=== PATIENT | female | born 1975 | race Two or more races ===

== ENCOUNTER 2024-12-05 18:38 | Emergency (ER) | payer MEDICAID ==
[~2024-12-05] VITALS: Ht 152.4 cm; Wt 66.5 kg
--- NOTE | 2024-12-05 19:38 | ED.PDOC ---
History of Present Illness HPI Comments 49-year-old female brought in by family complaining of bilateral upper extremity numbness, left greater than right, onset around 7:00 a.m. today. Patient also notes a dull headache, nausea, epigastric burning pain, and fatigue. Patient states that when she ambulates she feels very heavy and tired and her lower extremities. She denies any fever, diarrhea, constipation or dysuria. She denies any vision changes or focal weakness. Chief Complaint: Left Sided Weakness Time Seen by MD: 18:52 Primary Care Provider: none Allergies: Coded Allergies: NO KNOWN ALLERGIES (Unverified , 12/05/24) Mode of Arrival: Wheelchair Past Medical History PAST MEDICAL HISTORY: Denies Surgical History: Denies all surgeries SPLICER APPRENTICE History: No Pertinent SPLICER APPRENTICE History Family History Family History: Reviewed,noncontributory to illness Social History Smoker: Non-Smoker Alcohol: Denies ETOH Use Drugs: Denies Drug Use Lives In: Home All Other Systems: Reviewed and Negative (Comprehensive systems review obtained and negative except for what is stated in the HPI.) Physical Exam General Appearance: No Apparent Distress HEENT: PERRL/EOMI, Other (Face symmetric. Moist mucous membranes.) Neck: Full Range of Motion, Normal Inspection Respiratory: Lungs Clear, No Accessory Muscle Use, No Respiratory Distress, Normal Breath Sounds Cardiovascular: No Edema, No JVD, Regular Rate/Rhythm Breast Exam: Deferred Gastrointestinal: Non Tender, Soft Genitalia: Deferred Pelvic: Deferred Rectal: Deferred Extremities: Normal inspection, Normal range of motion, Non-tender, No pedal edema Neurologic: Alert (Oriented x4), kicking machine operator II-XII nml as Tested, No Motor Deficits (Ambulatory without difficulty.), Normal Affect, Normal Mood, Other Cerebellar Function: NOT DONE Reflexes: NOT DONE Skin: Dry, Normal Color, Warm Lymphatic: NOT DONE Was a procedure done? Was a procedure done?: No EKG EKG : Comments Sinus rhythm, rate 97, normal intervals, normal axis, normal QRS, inferior/lateral T-wave inversion with ST depression Differential Dx Considerations may include: CVA, TIA, electrolyte imbalance, anxiety, mass lesion, acid reflux, gastritis, pancreatitis, ACS, NM, arrhythmia, among others X-Ray, Labs, Meds, VS Vital Signs Date Time Temp Pulse Resp B/P (MAP) Pulse Ox O2 Delivery O2 Flow Rate FiO2 12/05/24 22:30 77 16 12/05/24 22:30 98.1 77 16 117/68 (84) 99 98.1 12/05/24 18:55 97.9 84 17 130/67 (88) 98 97.9 12/05/24 18:50 97 Lab Test 12/05/24 22:35 12/05/24 20:50 12/05/24 19:18 12/05/24 18:49 Range/Units Urine Color Yellow Yellow Urine Clarity Clear Clear Urine pH 6.5 5.0-9.0 Urine Specific [place] 1.035 1.001-1.035 Urine Protein 1+ H Negative Urine Ketones 4+ H Negative Urine Blood Negative Negative /uL Urine Nitrite Negative Negative Urine Bilirubin Negative Negative Urine Urobilinogen Normal Negative mg/dL Urine Leukocyte Esterase Negative Negative /uL Urine RBC 3 0 - 4 /hpf Urine Microscopic WBC 1 0-5 /HPF Urine Squamous Epithelial Cells Few <5 /hpf Urine Bacteria None seen None Seen /hpf Urine Mucus Few None Seen Urine Glucose Normal Normal mg/dL Troponin I High Sensitivity 9 7 </=34 ng/L White Blood Count 16.1 H 4.4-10.8 10^3/uL Red Blood Count 4.78 4.0-5.20 10^6/uL Hemoglobin 14.3 12.2-16.2 g/dL Hematocrit 42.3 36.0-46.0 % Mean Corpuscular Volume 88.6 80.0-100.0 fL Mean Corpuscular Hemoglobin 29.8 28.0-32.0 pg Mean Corpuscular Hemoglobin Concent 33.7 32.0-36.0 g/dL Red Cell Distribution Width 15.2 H 11.8-14.3 % Platelet Count 357 140-450 10^3/uL Mean Platelet Volume 8.9 6.9-10.8 fL Neutrophils (%) (Auto) 88.9 H 37.0-80.0 % Lymphocytes (%) (Auto) 7.0 L 10.0-50.0 % Monocytes (%) (Auto) 3.2 0.0-12.0 % Eosinophils (%) (Auto) 0.0 0.0-7.0 % Basophils (%) (Auto) 0.9 0.0-2.0 % Neutrophils # (Auto) 14.3 H 1.6-8.6 10 ^3/uL Lymphocytes # (Auto) 1.1 0.4-5.4 10 ^3/uL Monocytes # (Auto) 0.5 0-1.3 10 ^3/uL Eosinophils # (Auto) 0 0-0.8 10 ^3/uL Basophils # (Auto) 0.2 0-0.2 10 ^3/uL Nucleated Red Blood Cells 0.0 % Sodium Level 137 136-145 mmol/L Potassium Level 4.5 3.5-5.1 mmol/L Chloride Level 102 98-107 mmol/L Carbon Dioxide Level 25 20-31 mmol/L Anion Gap 10 5-15 Blood Urea Nitrogen 17 9-23 mg/dL Creatinine 0.58 0.550-1.02 mg/dL Glomerular Filtration Rate Calc 112 >90 mL/min BUN/Creatinine Ratio 29.3 H 10.0-20.0 Serum Glucose 97 74-106 mg/dL Calcium Level 10.4 8.7-10.4 mg/dL Total Bilirubin 0.9 0.2-1.0 mg/dL Aspartate Amino Transferase (AST) 20 13-40 U/L Alanine Aminotransferase (ALT) 21 7-40 U/L Alkaline Phosphatase 97 46-116 U/L Total Protein 8.0 5.7-8.2 g/dL Albumin 4.8 3.2-4.8 g/dL Lipase 28 12-53 U/L Beta HCG, Quantitative 1.1 L 1.5-4.2 mIU/mL POC Glucose 117 H 70-106 mg/dl Current Medications Medications (Trade) Dose Ordered Sig/Jameson Route Start Time Stop Time Status Last Admin Sodium Chloride 2,000 ml @ 1,000 mls/hr Q2H ONCE IV 12/05/24 19:00 12/05/24 20:59 DC 12/05/24 22:22 Ondansetron HCl (Zofran) 4 mg ONCE ONCE IV 12/05/24 19:00 12/05/24 19:01 DC 12/05/24 22:55 Famotidine (Pepcid Injection) 20 mg ONCE ONCE IV 12/05/24 19:00 12/05/24 19:01 DC 12/05/24 22:55 CT head PROCEDURE(s): HWOCT - HEAD WITHOUT CONTRAST REASON: L>R UE numbness, headache, BLE weak ORDER NUMBER(s): [id number], ACCESSION NUMBER(s): [id number] Procedure: CT HEAD WITHOUT CONTRAST Study Date and Requested Time: 12/05/2024 08:38 PM History: L>R UE numbness, headache, BLE weak Comparison: None Dose: CTDI: 51.05 mGy DLP: 820.24 mGycm Technique: Multiplanar images obtained through the brain without intravenous contrast. Findings: Normal brain volume and formation. Bilateral basal ganglia physiologic calcification. No hemorrhages, masses, mass effect, midline shift, herniation or cytotoxic edema following a large vascular territory. No intra-axial or extra-axial fluid collections. No evidence of hydrocephalus. The basal cisterns are patent. The pituitary gland, sella and parasellar regions are unremarkable. The cerebellar tonsils are in normal position. The cerebellum is unremarkable. The orbits and globes are unremarkable. Minimal mucoperiosteal thickening of the ethmoid air cells. Otherwise, the paranasal sinuses and mastoids are clear. There are no worrisome calvarial lesions. Impression: No evidence of acute intracranial abnormality. If symptoms persist, consider MRI for further evaluation. EDURE(s): CXRP - CHEST PORTABLE REASON: epigastric pain ORDER NUMBER(s): [id number], ACCESSION NUMBER(s): [id number] CHEST RADIOGRAPH Indication: epigastric pain Technique: Single frontal view of the chest was obtained COMPARISON: None FINDINGS: Lines and Tubes: None Lungs: Clear Pleura: No effusion. No pneumothorax. Cardiomediastinal contours: Unremarkable Bones: Unremarkable IMPRESSION: No abnormality demonstrated. X-Ray, Labs, Meds, VS Comment 49-year-old female with no significant past medical history complaining of bilateral upper extremity numbness, nausea, epigastric pain, general weakness and fatigue. Vitals unremarkable Exam unremarkable Rhythm strip independently interpreted by me: Sinus rhythm, rate 97, no ectopy. Head CT unremarkable Chest x-ray unremarkable CBC remarkable for WBC 16.1, CMP unremarkable, BNP normal, troponin negative x2, lipase normal, UA unremarkable Patient treated with the following in the ED: 1 L 0.9 normal saline IV bolus, Tylenol 1 g p.o., Zofran 4 mg IV, Pepcid 20 mg IV On re-evaluation, patient states epigastric pain and nausea have improved, vitals were stable. She is neurologically intact. Hospitalization was considered, however patient had rapid improvement of symptoms with treatment in the ED, and I no longer feel hospitalization is necessary. Possibly there was an anxiety component. Patient now appears stable for discharge with close outpatient follow-up with her primary physician. Rx Zofran, Pepcid, hydroxyzine Time of 1ST Reevaluation: 19:45 Reevaluation 1ST: Unchanged Patient Education/Counseling: Diagnosis, Treatment Family Education/Counseling: Diagnosis, Treatment Departure 1 Departure Time of Disposition: 00:16 Impression: Primary Impression: Paresthesia Additional Impressions: Nausea Epigastric pain Disposition: HOME / SELF CARE / HOMELESS Condition: Stable Additional Instructions: Your blood tests were unremarkable except for an elevated white blood cell count, which is nonspecific, and can be due to pain, stress or infection. We did not find any other evidence of infection on your workup. Your head CT was unremarkable. I have prescribed medication for your symptoms. Follow-up with your primary doctor in 1-2 days. Return to ER for persistent or worsening symptoms. e-Prescriptions Hydroxyzine HCl (Hydroxyzine Hydrochloride) 25 Mg Tab 25 MG PO Q6HP PRN, #30 TAB prn hand numbness/tingling or anxiety Prov: MOISES RAND MD 12/06/24 Famotidine (PEPCID TABLET) 20 Mg Tb 1 TAB PO BID PRN, #30 TAB 5 Refills prn abdominal pain/upset stomach Prov: MOISES RAND MD 12/06/24 Ondansetron Odt 4MG Tab (ZOFRAN PO) 4 Mg Tb 4 MG PO TID PRN, #30 TAB ODT TAB-DISSOLVE IN MOUTH, THEN SWALLOW Prov: MOISES RAND MD 12/06/24 Discharged With: Relative Critical Care Note Critical Care Time?: No Stability Stability form required: No Heart Score Heart Score: Heart Score Response (Comments) Value History Slightly Suspicious [address]-Deviation 2 Age 45-64 1 Risk Factors No known risk factors 0 Troponin Normal limit 0 Total 3 AU MOISES ADKINS MD Dec 05, 2024 19:38
[2024-12-05 20:06] LABS: Basophils # (auto) 0.2 10 ^3/uL (0-0.2); Basophils % (auto) 0.9 % (0.0-2.0); Eosinophils # (auto) 0 10 ^3/uL (0-0.8); Hematocrit 42.3 % (36.0-46.0); Hemoglobin 14.3 g/dL (12.2-16.2); Lymphocytes # (auto) 1.1 10 ^3/uL (0.4-5.4); Mean Corpuscular Hemoglobin 29.8 pg (28.0-32.0); Mean Corpuscular Hgb Conc. 33.7 g/dL (32.0-36.0); Mean Corpuscular Volume 88.6 fL (80.0-100.0); Monocytes # (auto) 0.5 10 ^3/uL (0-1.3); Monocytes % (auto) 3.2 % (0.0-12.0); Neutrophils # (auto) 14.3 10 ^3/uL (1.6-8.6); Neutrophils % (auto) 88.9 % (37.0-80.0); Platelet Count (auto) 357 10^3/uL (140-450); Red Blood Cells 4.78 10^6/uL (4.0-5.20); Red Cell Distribution Width 15.2 % (11.8-14.3); White Blood Cell 16.1 10^3/uL (4.4-10.8)
[2024-12-05 20:24] LABS: Alanine Aminotransferase 21 U/L (7-40); Alkaline Phosphatase 97 U/L (46-116); Anion Gap 10 (5-15); Aspartate Aminotransferase 20 U/L (13-40); BUN/Creatinine Ratio 29.3 (10.0-20.0); Blood Urea Nitrogen 17 mg/dL (9-23); Calcium 10.4 mg/dL (8.7-10.4); Carbon Dioxide 25 mmol/L (20-31); Chloride 102 mmol/L (98-107); Glucose 97 mg/dL (74-106); Potassium 4.5 mmol/L (3.5-5.1); Sodium 137 mmol/L (136-145)
[2024-12-05 20:25] LABS: Bilirubin, Total 0.9 mg/dL (0.2-1.0)
[2024-12-05 20:33] LABS: Albumin 4.8 g/dL (3.2-4.8)
--- NOTE | 2024-12-05 21:23 | DVH ---
CHEST RADIOGRAPH Indication: epigastric pain Technique: Single frontal view of the chest was obtained COMPARISON: None FINDINGS: Lines and Tubes: None Lungs: Clear Pleura: No effusion. No pneumothorax. Cardiomediastinal contours: Unremarkable Bones: Unremarkable IMPRESSION: No abnormality demonstrated.
--- NOTE | 2024-12-05 21:23 | DVH ---
Procedure: CT HEAD WITHOUT CONTRAST Study Date and Requested Time: 12/05/2024 08:38 PM History: L>R UE numbness, headache, BLE weak Comparison: None Dose: CTDI: 51.05 mGy DLP: 820.24 mGycm Technique: Multiplanar images obtained through the brain without intravenous contrast. Findings: Normal brain volume and formation. Bilateral basal ganglia physiologic calcification. No hemorrhages, masses, mass effect, midline shift, herniation or cytotoxic edema following a large v ascular territory. No intra-axial or extra-axial fluid collections. No evidence of hydrocephalus. The basal cisterns are patent. The pituitary gland, sella and parasellar regions are unremarkable. The cerebellar tonsils are in nor mal position. The cerebellum is unremarkable. The orbits and globes are unremarkable. Minimal mucoperiosteal thickening of the ethmoid air cells. Otherwise, the paranasal sinuses and mastoids are clear. There are no worrisome calvarial lesions. Impression: No evidence of acute intracranial abnormality. If symptoms persist, consider MRI for further evaluati on.
[2024-12-05] MEDS: SODIUM CHLORIDE 0.9% 2,000 ML IV ONE (22:22)
[2024-12-05 22:30] VITALS: BP 117/68; PULSE 77; RESP 16; TEMP 98.1; O2SAT 99
[2024-12-05 22:51] LABS: Urine Bacteria None Seen /hpf (None Seen)
[2024-12-05] MEDS: ONDANSETRON HCL 4 MG/2 ML VIAL IV ONE (22:55)
[2024-12-05] MEDS: FAMOTIDINE (10MG/ML) 2ML VL IV ONE (22:55)
[2024-12-05 23:06] LABS: Urine Blood Negative /uL (Negative); Urine Clarity Clear (Clear); Urine Color Yellow (Yellow); Urine Mucus FEW (None Seen); Urine Protein, UAD 1+ (Negative); Urine Specific Gravity 1.035 (1.001-1.035); Urine Squamous Epithelial Cell FEW /hpf (<5); Urine Urobilinogen Normal (Negative); Urine WBC 1 /HPF (0-5); Urine pH 6.5 (5.0-9.0)
[2024-12-05] MEDS: ACETAMINOPHEN 500 MG TAB or CAP PO ONE (23:28)
[2024-12-06] MEDS ORDERED: FAMO20TA10 PO (00:20)
[2024-12-06] MEDS ORDERED: HYDR-4924 PO (00:20)
[2024-12-06] MEDS ORDERED: ZOFR4T PO (00:20)
--- NOTE | 2024-12-06 09:11 | ECG ---
[facility] Test Date: 2024-12-05 Test Time: 18:50:34 Pat Name: CORTNEY PRO Department: ER Room: Gender: F Mooner: IAN : 1975 Requested By: MOISES ADKINS Order Number: [id number] Reading MD: Tony Wilcox Measurements Intervals [place] Rate: 97 P: 71 CA: 178 QRS: 75 QRSD: 74 T: -81 QT: 292 QTc: 371 Interpretive Statements Sinus rhythm Repol abnrm suggests ischemia, diffuse leads Electronically Signed On 12-06-2024 13:19:39 PDT by Tony Wilcox Please click the below link to view image of tracing.
== END 2024-12-06 00:37 | disposition home or self-care (01) ==
LOC: ER 18:38
DX: R20.2 Paresthesia of skin (principal); R11.0 Nausea; R10.13 Epigastric pain; R51.9 Headache, unspecified
CPT/HCPCS: 36415; 70450; 71045; 80053; 81001; 82947; 83690; 84484; 84702; 85025; 93005; 96361; 96374; 96375; 99285; J2405; J3490; J7030; 82962